=== PATIENT | male | born 1950 | race Caucasian/White ===

== ENCOUNTER 2017-04-17 14:04 | Emergency (ER) | payer MEDICARE ==
--- NOTE | 2017-04-17 15:35 | RAD ---
HISTORY: Head injury COMPARISONS: None TECHNIQUE: Multiple contiguous axial CT scans were obtained of the head without intravenous contrast. FINDINGS: HEMORRHAGE/INFARCT: There is no hemorrhage or acute infarct. MASSES/SHIFT: There is no mass or shift. EXTRA-AXIAL SPACES: There are no extra-axial fluid collections. SULCI AND VENTRICLES: The sulci and ventricles are normal in size and position for the patient's stated age. CEREBRUM: There are no focal parenchymal abnormalities. BRAINSTEM: There are no focal parenchymal abnormalities. CEREBELLUM: There are no focal parenchymal abnormalities. VESSELS: The vessels are grossly normal. PARANASAL SINUSES: The paranasal sinuses are clear. ORBITS: The orbits are unremarkable. BONES AND SOFT TISSUE: There is soft tissue swelling along the right parietal scalp OTHER: None IMPRESSION: NO ACUTE INTRACRANIAL PATHOLOGY.
--- NOTE | 2017-04-27 08:31 | ED ---
Laceration/Wound HPI - HPI Summary HPI Summary: Patient presents to ED with significant bleeding after a bicycle rack fell onto the crown of his head. Hx of thrombocytopenia. Denies medications. Significant bleeding from approx 2 in laceration to top of head. He was brought straight back to the ED fast track where provider was on arrival. Denies nausea , headache. Unremarkable neuro exam. Patient is very upset on arrival and is difficult to assess. Denies LOC, N/V, neuro symptoms, pain or confusion. - History of Current Complaint Stated Complaint: HEAD INJURY Time Seen by Provider: 04/17/17 15:11 Hx Obtained From: Patient Mechanism of Injury: Sharp/Blunt Trauma Onset/Duration: Sudden Onset Aggravating: Nothing Alleviating: Compression Timing: Constant Onset Severity: Severe Current Severity: Severe Pain Intensity: 0 Pain Scale Used: 0-10 Numeric Related Hx: Recent Trauma PMH/Surg Hx/FS Hx/Imm Hx Previously Healthy: Yes - Immunization History Hx Pertussis Vaccination: No Immunizations Up to Date: Unable to Obtain/Confirm Infectious Disease History: Denies: Traveled Outside the in Last 30 Days - Social History Occupation: Employed Full-time Lives: With Family Alcohol Use: None Hx Substance Use: No Substance Use Type: Reports: None Hx Tobacco Use: No Do You Chew or Dip Tobacco: No Review of Systems Constitutional: Negative Eyes: Negative Cardiovascular: Negative Respiratory: Negative Positive: no symptoms reported, see HPI Musculoskeletal: Negative Positive: Other - 3cm laceration to crown of head over parietal lobe area on right Neurological: Negative Psychological: Normal All Other Systems Reviewed And Are Negative: Yes Physical Exam Triage Information Reviewed: Yes Vital Signs On Initial Exam: Initial Vitals Temp Pulse Resp BP Pulse Ox 97.9 F 68 20 128/79 100 04/17/17 14:16 04/17/17 14:16 04/17/17 14:16 04/17/17 14:16 04/17/17 14:16 Vital Signs Reviewed: Yes Appearance: Positive: Well-Appearing, Well-Nourished Skin: Positive: Warm, Skin Color Reflects Adequate Perfusion Head/Face: Positive: Scalp, Cephalohematoma Eyes: Positive: Normal, EOMI, JIAN Neck: Positive: Supple, No Lymphadenopathy Respiratory/Lung Sounds: Positive: Clear to Auscultation, Breath Sounds Present Cardiovascular: Positive: Normal, RRR Musculoskeletal: Positive: Normal, Strength/ROM Intact Neurological: Positive: Normal, Sensory/Motor Intact Psychiatric: Positive: Patient Uncooperative for Exam AVPU Assessment: Alert Procedures - Laceration/Wound Repair 1 Location: head Description: Irregular Anesthesia: Local, 1.0% Length, Depth and Shape: 3cm length, irregular Betadine Prep?: No Irrigated w/ Saline (ccs): 60 Laceration/Wound Explored: clean Debridement: minimal Suture Type: Prolene Number of Sutures: 12 Layer Closure?: No Sterile Dressing Applied?: Yes - dressing with compression dressing applied Diagnostics - Vital Signs Vital Signs Temp Pulse Resp BP Pulse Ox 04/17/17 14:16 97.9 F 68 20 128/79 100 - Laboratory Lab Statement: Any lab studies that have been ordered have been reviewed, and results considered in the medical decision making process. Laceration Repair Course/Dx - Course Course Of Treatment: Patient taken back to ED fast track immediately on arrival with provider in room. Severe bleeding. Patient has hx of thrombocytopenia. Timeout obtained. Cleansed wound. Irrigated with 60CC's normal saline. Lidocaine without epi as local anesthetic - 6ml. 3-0 non-absorbable prolene. 12 sutures placed using simple interrupted technique. Patient tolerated well. Cleaned and dressed wound with telfa dressing. Compression dressing re-wrapped twice. - Differential Dx Differental Diagnoses: Joint Infection, Laceration, Tendon Laceration - Clinical Impression Provider Diagnoses: Laceration of head Discharge - Discharge Plan Condition: Stable Disposition: HOME Patient Education Materials: Care For Your Stitches (ED) Referrals: Non Staff,Doctor [Primary Care Provider] - Additional Instructions: Continue with pressure dressing and gauze x 1 day After such, you may leave open to air and use soap and water to cleanse the area Use sunscreen over the area if you are outside, do not get this dirty or sunburnt. Suture removal in 5-7 days. Follow up with your PCP or a provider for a wound check within 3-7 days Images - Images Head: 1 - 3cm laceration to crown of head over parietal lobe area
== END 2017-04-17 16:19 | disposition home or self-care (01) ==
LOC: ED 14:04
DX: S01.91XA Laceration without foreign body of unspecified part of head, initial encounter (principal); W22.8XXA Striking against or struck by other objects, initial encounter; Y93.9 Activity, unspecified; Y92.89 Other specified places as the place of occurrence of the external cause
CPT/HCPCS: 12002; 70450; 99281